=== PATIENT | female | born 2000 | race African-American/Black ===

== ENCOUNTER 2021-09-11 21:00 | Emergency (ER) | payer SELFPAY ==
[2021-09-11 21:42] VITALS: BP 135/75; PULSE 84; RESP 18; TEMP 36.3; O2SAT 100
[2021-09-11 21:54] LABS: Basophils Absolute Auto 0.1 K/mm3 (0.0-0.1); Basophils Percent Auto 0.7 % (0.2-1.2); Eosinophils Absolute Auto 0.2 K/mm3 (0-0.3); Eosinophils Percent Auto 1.7 % (0-4.4); Hematocrit 41.5 % (37.0-47.0); Hemoglobin 12.8 g/dL (12.0-15.0); Immature Granulocyte Absolute 0.04 K/mm3 (0.00-0.031); Immature Granulocyte Percent A 0.4 % (0-0.5); Lymphocytes Absolute Auto 2.78 K/mm3 (0.9-3.2); Lymphocytes Percent Auto 27.8 % (18.3-44.2); Mean Corpuscular HGB Conc 30.8 g/dl (32-36); Mean Corpuscular Hemoglobin 25.5 pg (26-34); Mean Corpuscular Volume 82.8 fl (80-100); Mean Platelet Volume 10.6 fl (7.4-10.4); Monocytes Absolute Auto 0.8 K/mm3 (0.1-0.6); Monocytes Percent Auto 7.9 % (2.6-8.5); Neutrophils Absolute Auto 6.1 K/mm3 (1.3-6.7); Neutrophils Percent Auto 61.5 % (45.5-73.1); Platelet Count Result 274 k/mm3 (150-375); Red Blood Count 5.01 M/mm3 (4.2-5.4); Red Cell Distribution Width 13.2 % (11.5-14.5)
[2021-09-11 22:06] LABS: Alanine Aminotransferase 20 U/L (4-35); Albumin Level 4.2 g/dL (3.5-5.1); Alkaline Phosphatase 74 U/L (38-126); Anion Gap 5 mmol/L (8-16); Aspartate Amino Transferase 29 U/L (14-36); Bilirubin,Total 0.2 mg/dL (0.2-1.3); Blood Urea Nitrogen 14 mg/dL (7-17); Carbon Dioxide 28 mmol/L (22-30); Chloride 106 mmol/L (98-107); Estimated CRCL calculation 102 ml/min; Estimated Glomerular Filt Rate > 60; Glucose 91 mg/dL (65-110); Lipase 85 U/L (23-300); Potassium 4.2 mmol/L (3.4-5.0); Sodium 139 mmol/L (137-145)
[2021-09-11 22:08] LABS: Add Urine Microscopic? NO; Appearance Urine Clear (Clear); Bilirubin Urine Negative (Negative); Blood Urine Negative (Negative); Color Urine Colorless (Yellow); Glucose Urine UA Negative (Negative); Ketones Urine Negative (Negative); Leukocyte Esterase Ur Negative LEU/UL (Negative); Nitrate Urine Negative (Negative); Protein Urine Negative (Negative); Specific Grav Ur 1.005 (1.001-1.035); Urobilinogen Urine Negative mg/dL (<2.0)
--- NOTE | 2021-09-11 22:53 | PC.NURSE ---
care transferred to susanne jones
[2021-09-11] MEDS: KETOROLAC 30 MG/ML VIAL (*BKC) IM (23:06)
--- NOTE | 2021-09-11 23:14 | ED.ABDPAIN ---
HPI - Abdominal Pain General Chief Complaint: Abdominal Pain Stated Complaint: abd pain Time Seen by Provider: 09/11/21 22:34 Source: patient History of Present Illness HPI narrative: Patient presents with back and abdominal pain. Patient ports her back pain started approximately 2 weeks ago was started in urgent care was given NSAIDs and muscle relaxers has not noted improvement in her symptoms so she came to the ER for evaluation. She also reports today she noted a stomach pain in her epigastric area pain is achy, constant, no clear aggravating relieving factors, no radiation. Her back pain is achy is predominantly on the left side and feels like her kidneys. Her pain is worse with bending over standing up or laying flat does not radiate. Related Data Allergies Allergy/AdvReac Type Severity Reaction Status Date / Time No Known Allergies Allergy Verified 09/11/21 22:02 Review of Systems Review of Systems: CONSTITUTIONAL: Denies fever, chills, or sweats. EYES: Denies visual changes, redness, or discharge. ENT: Denies rhinorrhea, congestion, sore throat, or otalgia. CARDIOVASCULAR: Denies chest pain, palpitations, or edema. RESPIRATORY: Denies cough or dyspnea. GASTROINTESTINAL: Denies nausea, vomiting, or diarrhea. GENITOURINARY: Denies dysuria or hematuria. SKIN: Denies rash or itching. MUSCULOSKELETAL: Denies joint pain, or myalgia. NEUROLOGIC: Denies headache, numbness, dizziness, or weakness. PSYCHIATRIC: Denies anxiety or depression. All systems reviewed & are unremarkable except as noted in HPI and below PMFSH Past Medical History Medical History (Updated 09/11/21 @ 23:18 by Gordon Hsu MD) Patient denies significant medical history Exam Narrative: GENERAL: Well-appearing, well-nourished, and in no acute distress. HEAD: Normocephalic, atraumatic. EYES: PERRLA and EOMI. ENT: Nares clear, no rhinorrhea or epistaxis. Mucous membranes moist. NECK: Supple. No masses. No JVD CHEST: Clear to auscultation. No respiratory distress. No wheezes rales or rhonchi HEART: Regular rate and rhythm. No murmur heard. Normal peripheral pulses. ABDOMEN: Minimal tenderness with deep palpation in the epigastric area, softr, nondistended, normal active bowel sounds. BACK: Mild tenderness with palpation of the left paraspinal muscles no CVA tenderness no midline back pain EXTREMITIES: Normal range of motion. No edema. SKIN: Warm, dry, no rash. NEURO: No focal deficits. Alert and oriented x3. PSYCH: Normal mood and affect. Course Vital Signs Vital signs: Vital Signs Temperature 36.3 C L 09/11/21 21:42 Pulse Rate 84 09/11/21 21:42 Respiratory Rate 18 09/11/21 21:42 Blood Pressure 135/75 09/11/21 21:42 Pulse Oximetry 100 09/11/21 21:42 Temperature 36.6 C 09/11/21 23:57 Pulse Rate 68 09/11/21 23:57 Respiratory Rate 14 09/11/21 23:57 Blood Pressure 112/60 09/11/21 23:57 Pulse Oximetry 99 09/11/21 23:57 MDM - Abdominal Pain MDM Narrative Medical decision making narrative: H&P as above, vss, pt looks clinically well, exam with reproducible back pain, labs unremarkable, additional labs/img considered, symptomatic relief available as needed, on reevaluation pt continues to looks clinically well. Suspect musculoskeletal back pain, dns UTI, pyelonephritis, ureteral stone, pancreatitis, bowel obstruction, perforation. plan to tx/monitor as op w/ pcm f/u findings/plan discussed with pt, pt agree/comfortable with plan, return precautions given Lab Data Result diagrams: 09/11/21 21:49 09/11/21 21:49 Labs: Lab Results 09/11/21 09/11/21 09/11/21 Range/Units 21:49 21:49 21:57 WBC 10.0 (4.5-10.0) K/mm3 RBC 5.01 (4.2-5.4) M/mm3 Hgb 12.8 (12.0-15.0) g/dL Hct 41.5 (37.0-47.0) % MCV 82.8 (80-100) fl MCH 25.5 L (26-34) pg MCHC 30.8 L (32-36) g/dl RDW 13.2 (11.5-14.5) % Plt Count 274 (150-375) k/mm3 MPV 10.6 H (7.4-
[2021-09-11 23:57] VITALS: BP 112/60; PULSE 68; RESP 14; TEMP 36.6; O2SAT 99
== END 2021-09-12 00:01 | disposition home or self-care (01) ==
PROVIDERS: Emergency Provider Emergency Medicine
DX: M54.50 Low back pain, unspecified (principal); R10.9 Unspecified abdominal pain
CPT/HCPCS: 36415; 80053; 81003; 81025; 83690; 85025; 96372; 99283; J1885